=== PATIENT | female | born 1975 | race American Indian/Alaskan Native ===

== ENCOUNTER 2016-03-25 11:05 | Outpatient (CLI) | payer OTHER, MEDICAID ==
--- NOTE | 2016-03-25 13:54 | Mammography Report ---
BILATERAL DIGITAL DIAGNOSTIC MAMMOGRAM with CAD: 03/25/16 11:05:00 CLINICAL: Followup axillary lymph nodes. COMPARISON:[facility] 04/04/15 mammogram FINDINGS: The breasts are almost entirely fatty. Bilateral axillary lymph nodes are stable in size and morphology. No suspicious findings.No mass, architectural distortion or suspicious calcifications. IMPRESSION: Negative mammogram.Benign bilateral axillary lymph nodes. BI-RADS CATEGORY: 2 - - Benign RECOMMENDATION: Routine mammographic screening in one year. ACR BI-RADS MAMMOGRAPHIC CODES: 0 = Needs additional imaging evaluation; 1 = Negative; 2 = Benign; 3 = Probably benign; 4 = Suspicious; 5 = Malignant; 6 = Known biopsy-proven malignancy COMMENT: 1. Dense breast tissue, i.e., adenosis, fibrocystic changes, etc., may obscure an underlying neoplasm. 2. Approximately 10% of cancers are not detected with mammography. 3. A negative mammography report should not delay biopsy if a clinically suspicious mass is present. COMMENT: Patient follow-up letters are generated by our [employer] application.
== END 2016-03-25 11:06 | disposition home or self-care (01) ==
LOC: SPVWC 11:05
PROVIDERS: ATTEND Surgery
DX: N63 Unspecified lump in breast (principal)
CPT/HCPCS: 77066; G0204

== ENCOUNTER 2019-11-16 08:40 | Emergency (ER) | payer SELFPAY ==
[2019-11-16 08:58] VITALS: BP 163/80
[2019-11-16] MEDS ORDERED: ASPIRIN 325 MG TAB PO ONE (09:14)
[2019-11-16 10:00] LABS: Basophils # (Auto) 0.1 K/mm3 (0.0-0.1); Eosinophils # (Auto) 0.2 K/mm3 (0.0-0.4); Eosinophils % (Auto) 2.7 % (0.0-4.3); Hematocrit 37.8 % (30.3-42.9); Hemoglobin 11.8 gm/dl (10.1-14.3); Lymphocytes # (Auto) 1.8 K/mm3 (1.2-5.4); Lymphocytes % (Auto) 26.8 % (13.4-35.0); Mean Corpuscular HGB Conc 31 % (30-34); Mean Corpuscular Volume 86 fl (79-97); Monocytes # (Auto) 0.3 K/mm3 (0.0-0.8); Monocytes % (Auto) 5.1 % (0.0-7.3); Platelet Count 347 K/mm3 (140-440); Red Blood Count 4.42 M/mm3 (3.65-5.03); Red Cell Distribution Width 17.9 % (13.2-15.2)
--- NOTE | 2019-11-16 10:13 | XRay Report ---
CHEST 2 VIEWS INDICATION / CLINICAL INFORMATION: Chest Pain. COMPARISON: None available. FINDINGS: SUPPORT DEVICES: None. HEART / MEDIASTINUM: No significant abnormality. LUNGS / PLEURA: No significant pulmonary or pleural abnormality. No pneumothorax. ADDITIONAL FINDINGS: No significant additional findings. IMPRESSION: 1. No acute findings. Signer Name: Kunal Rendon MD Signed: 11/16/2019 10:08 AM Workstation Name: [id number][id number]
[2019-11-16 10:41] LABS: BUN/Creatinine Ratio 14; Blood Urea Nitrogen 13 mg/dL (7-17); Calcium 9.5 mg/dL (8.4-10.2); Hemolysis Index 4
== END 2019-11-16 12:49 | disposition left against medical advice (07) ==
LOC: ED 08:40
DX: M54.89 Other dorsalgia (principal); Z53.21 Procedure and treatment not carried out due to patient leaving prior to being seen by health care provider
CPT/HCPCS: 36415; 71046; 80048; 84484; 85025; 93005

== ENCOUNTER 2020-10-12 07:51 | Day surgery (SDC) | payer BC, OTHER ==
[2020-10-12] MEDS ORDERED: ONDANSETRON 4 MG/2 ML INJ IV PRN (08:49)
[2020-10-12] MEDS ORDERED: HYDROmorphone 1 MG/1 ML INJ IV PRN ×2 (08:49)
[2020-10-12] MEDS ORDERED: LACTATED RINGERS 1,000 ML IV SCH ×2 (08:55→10:00)
[2020-10-12] MEDS ORDERED: MIDAZOLAM 2 MG/2 ML INJ IV NR (09:00)
--- NOTE | 2020-10-12 09:23 | Operative Report ---
Operative Report Operative Report: Preoperative diagnosis:;Family-planning desiring ParaGard IUD insertion failed insertion in the outpatient setting Postoperative diagnosis:Same ProcedInsertion of ParaGard IUD under MAC sedation Surgeon: Dr. Ada Walden Anesthesia:MAC Complication:None EBL:None IV fluids:1 L crystalloid Urine output:All 100 cc adequate and clear Drain:None Findings:Anteverted uterus sounded to 7 cm with no adnexal masses, parametria pink with no nodularity or lesions Procedure: Patient was consented in preop holding about risks benefits possible complications as well as alternatives to the procedure. After informed consent was obtained patient was taken to the operating room. She received excellent MAC anesthesia and with no complication. She was then placed in the dorsal lithotomy position, prepped and draped in a sterile fashion. A timeout was verified, Bladder drained using a red rubber catheter. A speculum was placed in the vaginal vault, the parametria was noted to be pink with no masses lesions or nodularity. The cervix was identified, grasped with a single-tooth tenaculum, And the uterus sounded to 7 cm. The ParaGard IUD was then inserted in the usual fashion with no complications. The tenaculum and speculum were removed from the cervix and the vagina respectively. The patient was extubated and taken to the recovery area in stable condition. Her family was notified of her stable condition immediately following the completion of the procedure. There were no complications. EBL less than 50 mL. All sponge needle and instrument counts were correct x2Judson Walden MD
[2020-10-12 09:48] LABS: Partial Thromboplastin Time 33.4 Sec. (24.2-36.6)
--- NOTE | 2020-10-12 09:55 | Anesthesia Day of Surgery ---
Anesthesia Day of Surgery - Day of Surgery Patient Examined: Yes Patient H&P Reviewed: Yes Patient is NPO: Yes
--- NOTE | 2020-10-12 09:57 | Anesthesia Consultation ---
Anesthesia Consult and Med Hx Date of service: 10/12/20 - Airway Anesthetic Teeth Evaluation: Good ROM Head & Neck: Adequate Mental/Hyoid Distance: Adequate Mallampati Class: Class II Intubation Access Assessment: Good - Pre-Operative Health Status ASA Pre-Surgery Classification: ASA3 Proposed Anesthetic Plan: MAC (GA if needed) - Pulmonary Hx Asthma: Yes (USED PUFFER 3 WKS AGO. Allergic) Hx Respiratory Symptoms: No (+2FS) SOB: No (PE 2015 while on OCP) Hx Sleep Apnea: No - Cardiovascular System Hx Hypertension: Yes Hx Heart Attack/AMI: No - Central Nervous System Hx Back Pain: Yes Hx Psychiatric Problems: No - Gastrointestinal Hx Gastroesophageal Reflux Disease: Yes (With spicy foods) - Endocrine Hx Non-Insulin Dependent Diabetes: Yes - Hematic Hx Anemia: No Hx Sickle Cell Disease: No - Other Systems Hx Alcohol Use: No Hx Substance Use: No Hx Cancer: No Hx Obesity: Yes
[2020-10-12] MEDS ORDERED: LIDOCAINE MPF (2%) 20 MG/1 ML VIAL 5 ML ONE (10:00)
[2020-10-12] MEDS ORDERED: fentaNYL 100 MCG/2 ML INJ ONE (10:06)
[2020-10-12] MEDS ORDERED: KETOROLAC 30 MG/1 ML INJ ONE (10:06)
[2020-10-12] MEDS ORDERED: propofoL 200 MG/20 ML VIAL IV ONE (10:06)
[2020-10-12] MEDS ORDERED: KETAMINE/STERILE WATER 50 MG/ML SYRINGE ONE (10:28)
[2020-10-12 11:46] VITALS: BP 136/78
--- NOTE | 2020-10-12 12:14 | Post Anesthesia Evaluation ---
- Post Anesthesia Evaluation Patient Participated: Yes Airway Patent: Yes Stable Respiratory Function: Yes Nausea/Vomiting: No Temp > 96.8F: Yes Pain Manageable: Yes Adequeate Hydration: Yes Anesthesia Complications: No Block Receding Appropriately: Not Applicable Patient on Ventilator: No
== END 2020-10-12 12:10 | disposition home or self-care (01) ==
LOC: OR 07:51
PROVIDERS: ATTEND Obstetrics & Gynecology
DX: Z30.430 Encounter for insertion of intrauterine contraceptive device (principal); I27.82 Chronic pulmonary embolism; I10 Essential (primary) hypertension; J45.909 Unspecified asthma, uncomplicated; K21.9 Gastro-esophageal reflux disease without esophagitis; E11.9 Type 2 diabetes mellitus without complications; E66.9 Obesity, unspecified; M19.90 Unspecified osteoarthritis, unspecified site; Z79.84 Long term (current) use of oral hypoglycemic drugs; Z79.899 Other long term (current) drug therapy; Z90.710 Acquired absence of both cervix and uterus; Z98.890 Other specified postprocedural states; Z91.013 Allergy to seafood; Z91.041 Radiographic dye allergy status; Z68.43 Body mass index [BMI] 50.0-59.9, adult
CPT/HCPCS: 36415; 58300; 81025; 82962; 85610; 85730; 88305; J1885; J2250; J2704; J3010; J3490; J7120

== ENCOUNTER 2021-01-29 06:51 | Day surgery (SDC) | payer BC, OTHER ==
[2021-01-29] MEDS ORDERED: ASPIRIN EC 325 MG TAB PO SCH (07:30)
[2021-01-29] MEDS ORDERED: SODIUM CHLORIDE 0.9% 500 ML 500 ML IV SCH (08:00)
[2021-01-29] MEDS ORDERED: HEPARIN/NS 5000 UNIT/500ML 1,000 ML IR ONE (08:50)
[2021-01-29] MEDS ORDERED: LIDOCAINE (2%) 20 MG/1 ML VIAL 20 ML MDV INFILTRATI ONE ×2 (08:50→10:59)
[2021-01-29] MEDS ORDERED: NITROGLYCERIN SYRINGE 3 ML ONE (08:51)
[2021-01-29 08:52] LABS: Basophils # (Auto) 0.1 K/mm3 (0.0-0.1); Eosinophils # (Auto) 0.2 K/mm3 (0.0-0.4); Eosinophils % (Auto) 4.1 % (0.0-4.3); Lymphocytes % (Auto) 37.4 % (13.4-35.0); Mean Corpuscular HGB Conc 30 % (30-34); Mean Corpuscular Volume 85 fl (79-97); Monocytes # (Auto) 0.4 K/mm3 (0.0-0.8); Monocytes % (Auto) 7.3 % (0.0-7.3); Platelet Count 285 K/mm3 (140-440); Red Blood Count 4.81 M/mm3 (3.65-5.03); Red Cell Distribution Width 18.2 % (13.2-15.2)
[2021-01-29 08:54] LABS: Hematocrit 40.6 % (30.3-42.9); Hemoglobin 12.2 gm/dl (10.1-14.3)
[2021-01-29 09:02] LABS: BUN/Creatinine Ratio 20; Blood Urea Nitrogen 18 mg/dL (7-17); Calcium 9.4 mg/dL (8.4-10.2); Hemolysis Index 10
[2021-01-29 09:29] LABS: INR 0.96 (0.87-1.13)
[2021-01-29] MEDS ORDERED: NITROGLYCERIN 600 MCG/3 ML SYRINGE UD ONE ×2 (09:44→11:00)
[2021-01-29] MEDS: HEPARIN 10,000 UNITS/10 ML VIAL ONE ×2 (09:44→11:00)
[2021-01-29] MEDS: VERAPAMIL 5 MG/2 ML INJ ONE ×2 (09:44→11:00)
[2021-01-29] MEDS: MIDAZOLAM 2 MG/2 ML INJ ONE ×2 (09:46→10:56)
[2021-01-29] MEDS: fentaNYL 100 MCG/2 ML INJ ONE ×2 (09:46→10:56)
[2021-01-29] MEDS ORDERED: HYDROCORTISONE SOD SUCC 100 MG/2 ML VIAL ONE (09:53)
[2021-01-29] MEDS ORDERED: diphenhydrAMINE 50 MG/ML VIAL ONE (09:53)
--- NOTE | 2021-01-29 10:26 | Electrocardiograph Report ---
[facility] Test Date: 2021-01-29 Test Time: 08:07:51 Pat Name: ROSSI WINSLOW Department: Room: Gender: F Straightener: JOSELIN : 1975 Requested By: JARED CASTELLANO Order Number: [id number] Reading MD: Ryan Washington Measurements Intervals Francis Rate: 84 P: 73 OK: 152 QRS: 58 QRSD: 92 T: 44 QT: 396 QTc: 468 Interpretive Statements Sinus rhythm Right atrial enlargement No previous ECG available for comparison Electronically Signed On 01-29-2021 10:25:33 EST by Ryan Washington
--- NOTE | 2021-01-29 11:38 | Cardiac Catherization Report ---
DATE OF SERVICE: 01/29/2021 CARDIAC CATHETERIZATION REPORT REASON FOR PROCEDURE: The patient is a 45-year-old woman who was preoperative for bariatric surgery. She underwent a PET cardiac ischemia scan that was positive. As a result, she was recommended for further evaluation with a diagnostic cardiac catheterization prior to anticipated surgery. PROCEDURES: 1. Left heart catheterization. 2. Selective left and right coronary angiography. 3. Left ventricular angiography. 4. Sedation time start 10:57, end 11:11. DESCRIPTION OF PROCEDURE: The patient was prepped and draped in a sterile fashion after informed consent. The right radial cath site was prepped and draped after negative Yamil's test. The right radial artery was entered using Seldinger technique followed by placement of a 6-Portuguese hydrophilic sheath. Routine radial cocktail was administered via the sheath. Selective left and right coronary angiography was performed using a #3.5 left Song and a #4 right Song. The pigtail catheter was used for left ventricular angiography. The catheters were removed, sheath removed and hemostasis achieved using a TR band. The patient was returned to the postprocedure unit in stable condition. There were no complications. FINDINGS: HEMODYNAMICS: Left ventricular end-diastolic pressure was 25-30, following coronary angiography. Ascending aortic pressure was 144/71. There was no significant pressure gradient on pullback across the aortic valve. CORONARY ANGIOGRAPHY: The left main coronary artery was angiographically normal. The left anterior descending artery and its diagonal branches were angiographically normal. A large ramus intermedius artery was angiographically normal. The circumflex system was of small caliber, but also angiographically normal. The right coronary artery was dominant and similarly angiographically normal. There was normal left ventricular systolic function, ejection fraction 55%. CONCLUSION: 1. Angiographically normal coronary arteries. 2. Normal left ventricular systolic function, ejection fraction 55%. RECOMMENDATION: Risk factor modification. TID: [id number] RECEIPT: [id number] CA/KEVAN
--- NOTE | 2021-01-29 11:53 | Discharge Summary ---
Short Stay Discharge Plan Activity: advance as tolerated Weight Bearing Status: Full Weight Bearing Diet: low fat, low cholesterol, low salt, diabetic Wound: keep clean and dry Special Instructions: no heavy lifting (3 days), hold Metformin (48 hours) Additional Instructions: Hold Metformin for 48 hours after cardiac catheterization procedure. Follow up with: ANASTASIA ALFONSO MD [Primary Care Provider] - 7 Days JARED CASTELLANO MD [Staff Physician] - 7 Days
[2021-01-29] MEDS ORDERED: traMADol 50 MG TAB PO PRN (12:00)
[2021-01-29] MEDS ORDERED: SODIUM CHLORIDE 0.9% 1000 ML 1,000 ML IV SCH (12:00)
[2021-01-29 15:18] VITALS: BP 128/52
== END 2021-01-29 06:52 | disposition home or self-care (01) ==
LOC: CATHLABREC 06:51
PROVIDERS: ATTEND Internal Medicine Cardiovascular Disease
DX: R01.1 Cardiac murmur, unspecified (principal); I10 Essential (primary) hypertension; E66.01 Morbid (severe) obesity due to excess calories; K21.9 Gastro-esophageal reflux disease without esophagitis; J45.909 Unspecified asthma, uncomplicated; M19.90 Unspecified osteoarthritis, unspecified site; E11.9 Type 2 diabetes mellitus without complications; Z79.01 Long term (current) use of anticoagulants; Z79.84 Long term (current) use of oral hypoglycemic drugs; Z79.899 Other long term (current) drug therapy; Z98.890 Other specified postprocedural states; Z91.041 Radiographic dye allergy status; Z91.013 Allergy to seafood; Z68.44 Body mass index [BMI] 60.0-69.9, adult
CPT/HCPCS: 36415; 80048; 85025; 85610; 85730; 93005; 93458; 99156; C1894; J1200; J1644; J1720; J1815; J2250; J3010; J3490; J7040; Q9967